=== PATIENT | female | born 1960 | race Caucasian/White ===

== ENCOUNTER 2016-04-20 12:02 | Emergency (ER) | payer OTHER ==
[~2016-04-20] VITALS: Ht 170.2 cm; Wt 103.8 kg
[~2016-04-20 12:02] MED LIST: ASPIR-TRIN325 M1 PO; BENZONATATE200 MG PO; LEVAQUIN750 MG PO; LISINOPRIL20 MG PO; NASONEX17 GM NS; NEXIUM40 MG PO; PROAIR HFA8.5 GM IH; SINGULAIR10 MG PO; ZESTRIL,PRINIVI20 MG PO; ZITHROMAX500 MG PO
[2016-04-20 13:15] LABS: INFLUENZA A VIRAL ANTIGEN NEGATIVE; INFLUENZA B VIRAL ANTIGEN NEGATIVE
[2016-04-20] MEDS ORDERED: TESSALON PERLE100 MG PO (14:03)
[2016-04-20] MEDS ORDERED: NORCO 7.5/321 TABLET PO (14:03)
[2016-04-20] MEDS ORDERED: INDOCIN25 MG PO (14:03)
[2016-04-20 14:15] VITALS: BP 130/66
== END 2016-04-20 14:17 | disposition home or self-care (01) ==
LOC: RME 12:02 → EME 12:02 → RME 14:17
PROVIDERS: Physician Assistant
DX: S20.212A Contusion of left front wall of thorax, initial encounter (principal); W01.190A Fall on same level from slipping, tripping and stumbling with subsequent striking against furniture, initial encounter; J06.9 Acute upper respiratory infection, unspecified; J40 Bronchitis, not specified as acute or chronic; J44.9 Chronic obstructive pulmonary disease, unspecified; I10 Essential (primary) hypertension; K21.9 Gastro-esophageal reflux disease without esophagitis; F17.200 Nicotine dependence, unspecified, uncomplicated
CPT/HCPCS: 71020; 87502; 93005; 99281; 99284